=== PATIENT | female | born 1985 | race Caucasian/White ===

== ENCOUNTER 2018-08-26 16:58 | Emergency (ER) | payer MEDICAID ==
[~2018-08-26] VITALS: Ht 170.2 cm; Wt 52.2 kg
[2018-08-26] MEDS ORDERED: NKM (17:00)
[2018-08-26] MEDS ORDERED: QUETIAPINE FUMA25 MG ORAL (17:02)
[2018-08-26 17:05] VITALS: BP 101/70
--- NOTE | 2018-08-26 17:05 | NUR ---
ED Nurse Note: BROUGHT IN BY [facility] DUE TO METH OD. PT STATES THAT SHE SMOKED A "DIMESACK' THIS MORNING WITH SEROQUEL. PT IS CRYING IN GURNEY. A/OX1 AT THIS TIME BUT ANSWERS SOME QUESTIONS BUT DOES NOT RESPOND TO ALL THE QUESTIONS. NO S/S OF DISTRESS.
--- NOTE | 2018-08-26 17:23 | NUR ---
ATTEMPTED EKG. PT AGITATED AND UNABLE TO SIT STILL. ERMD NOTIFIED.
[2018-08-26 18:03] LABS: BASOPHILS % (AUTO) 0.5 % (0.0-2.0); EOSINOPHILS % (AUTO) 0.7 % (0.0-3.0); HEMATOCRIT 37.8 % (37.0-47.0); HEMOGLOBIN 12.6 G/DL (12.0-16.0); LYMPHOCYTES % (AUTO) 14.1 % (20.0-45.0); MEAN CORPUSCULAR VOLUME 81 FL (80-99); MONOCYTES % (AUTO) 6.4 % (1.0-10.0); NEUTROPHILS % (AUTO) 78.3 % (45.0-75.0); PLATELET COUNT 259 K/UL (150-450); RED BLOOD COUNT 4.66 M/UL (4.20-5.40); RED CELL DISTRIBUTION WIDTH 12.4 % (11.6-14.8); WHITE BLOOD COUNT 17.2 K/UL (4.8-10.8)
[2018-08-26 18:05] LABS: APPEARANCE,URINE CLEAR; BILIRUBIN, URINE NEGATIVE (NEGATIVE); COLOR,URINE PALE YELLOW; GLUCOSE, URINE (UA) NEGATIVE (NEGATIVE); KETONES,URINE NEGATIVE (NEGATIVE); LEUKOCYTE ESTERASE ,URINE NEGATIVE (NEGATIVE); NITRITE,URINE NEGATIVE (NEGATIVE); PH,URINE 8 (4.5-8.0); PROTEIN,URINE NEGATIVE (NEGATIVE); UROBILINOGEN,URINE NORMAL MG/DL (0.0-1.0)
[2018-08-26 18:13] LABS: ANION GAP 9 mmol/L (5-15); BLOOD UREA NITROGEN 7 mg/dL (7-18); CALCIUM 9.3 MG/DL (8.5-10.1); CARBON DIOXIDE 27 MMOL/L (21-32); CHLORIDE 98 MMOL/L (98-107); POTASSIUM 3.3 MMOL/L (3.5-5.1); SODIUM 134 MMOL/L (136-145)
[2018-08-26 18:25] LABS: ALANINE AMINOTRANSFERASE 33 U/L (12-78); ALBUMIN 3.7 G/DL (3.4-5.0); ALBUMIN/GLOBULIN RATIO 1.1 (1.0-2.7); ALKALINE PHOSPHATASE 105 U/L (46-116); ASPARTATE AMINO TRANSFERASE 27 U/L (15-37); BILIRUBIN,TOTAL 1.1 MG/DL (0.2-1.0)
[2018-08-26 18:28] LABS: BILIRUBIN,DIRECT 0.2 MG/DL (0.0-0.3)
[2018-08-26 18:38] VITALS: BP 122/87
--- NOTE | 2018-08-26 18:39 | NUR ---
ED Nurse Note: PT IS NOW A/OX4. PT REPORTS THAT SHE TAKES LOTS OF DRUGS. DENIES SOB NOR CP.
--- NOTE | 2018-08-26 19:01 | NUR ---
HAND-OFF: Report given to SILVIANO Sanchez. No signs of distress.
--- NOTE | 2018-08-26 19:02 | NUR ---
ED Nurse Note: Patient is currently A&Ox4, but paranoid. vital signs are stable.
--- NOTE | 2018-08-26 19:20 | NUR ---
ED Nurse Note: Patietn exhibting sgns of seizure, patient convulsing, ERMD informed patient rendered anti-anxiety medication.
[2018-08-26] MEDS ORDERED: LORazepam 1mg tab ORAL ONE ×2 (19:30→20:15)
--- NOTE | 2018-08-26 19:51 | Emergency Room Report ---
History of Present Illness General Chief Complaint: Substance Abuse Source: Patient (Delfina Jones DO) Present Illness HPI This patient is brought in by EMS from the streets. She did multiple rounds of methamphetamine this morning and feels like maybe she is overdosed. She is acting bizarrely. She has no specific complaints. (Delfina Jones DO) Allergies: Coded Allergies: PENICILLINS (Verified Allergy, Unknown, 08/26/18) Patient History Past Medical History: unable to obtain Social History: Reports: smoking, drug use; Denies: alcohol use Last Menstrual Period: n/a Now: No Reviewed Nursing Documentation: PMH: Agreed; PSxH: Agreed (Delfina Jones DO) Nursing Documentation-PMH Past Medical History: No History, Except For History Of Psychiatric Problem: Yes - schizophrenia, bipolar disorder (Delfina Jones DO) Review of Systems All Other Systems: negative except mentioned in HPI (Delfina Jones DO) Physical Exam Vital Signs Date Time Temp Pulse Resp B/P (MAP) Pulse Ox O2 Delivery O2 Flow Rate FiO2 08/26/18 16:55 97.9 120 18 112/83 98 Room Air Sp02 EP Interpretation: reviewed, normal General Appearance: no apparent distress, alert, GCS 15, non-toxic Head: normocephalic, atraumatic ENT: hearing grossly normal, normal pharynx, no angioedema, normal voice Neck: full range of motion, supple/symm/no masses Respiratory: chest non-tender, lungs clear, normal breath sounds, no respiratory distress, no retraction, no accessory muscle use, speaking full sentences Cardiovascular #1: no edema, tachycardia Gastrointestinal: normal bowel sounds, non tender, soft, non-distended, no guarding, no rebound Rectal: deferred Musculoskeletal: back normal, normal range of motion, non-tender Neurologic: alert, responsive, motor strength/tone normal, speech normal, grossly normal Psychiatric: no suicidal/homicidal ideation, anxious - Agitated, bizarre behavior Skin: normal color, no rash, warm/dry, well hydrated (Delfina Jones DO) Medical Decision Making Diagnostic Impression: Primary Impression: Methamphetamine intoxication ER Course This patient presents with acute methamphetamine intoxication. The patient's laboratory workup was noncontributory other than positive amphetamines on urine drug screen. The patient has a leukocytosis which is likely an acute phase reactant secondary to methamphetamine abuse. There is no evidence of trauma or injury on physical examination of this patient. The patient was allowed to sober up in the emergency department and was able to ambulate and articulate desire to go home. The patient was clinically sober at the time of discharge. No acute emergency medical condition is identified. The patient was educated on the dangers of illicit drug use and amphetamine abuse. The patient was given a list of the local rehabilitation clinics. Laboratory Tests Test 08/26/18 17:30 08/26/18 17:50 Urine Color Pale yellow Urine Appearance Clear Urine pH 8 (4.5-8.0) Urine Specific [place] 1.010 (1.005-1.035) Urine Protein Negative (NEGATIVE) Urine Glucose (UA) Negative (NEGATIVE) Urine Ketones Negative (NEGATIVE) Urine Blood Negative (NEGATIVE) Urine Nitrite Negative (NEGATIVE) Urine Bilirubin Negative (NEGATIVE) Urine Urobilinogen Normal MG/DL (0.0-1.0) Urine Leukocyte Esterase Negative (NEGATIVE) Urine HCG, Qualitative Negative (NEGATIVE) Urine Opiates Screen Negative (NEGATIVE) Urine Barbiturates Screen Negative (NEGATIVE) Phencyclidine (PCP) Screen Negative (NEGATIVE) Urine Amphetamines Screen Positive (NEGATIVE) H Urine Benzodiazepines Screen Negative (NEGATIVE) Urine Cocaine Screen Negative (NEGATIVE) Urine Marijuana (THC) Screen Negative (NEGATIVE) White Blood Count 17.2 K/UL (4.8-10.8) H Red Blood Count 4.66 M/UL (4.20-5.40) Hemoglobin 12.6 G/DL (12.0-16.0) Hematocrit 37.8 % (37.0-47.0) Mean Corpuscular Volume 81 FL (80-99) Mean Corpuscular Hemoglobin 27.0 PG (27.0-31.0) Mean Corpuscular Hemoglobin Concent 33.2 G/DL (32.0-36.0) Red Cell Distribution Width 12.4 % (11.6-14.8) Platelet Count 259 K/UL (150-450) Mean Platelet Volume 6.5 FL (6.5-10.1) Neutrophils (%) (Auto) 78.3 % (45.0-75.0) H Lymphocytes (%) (Auto) 14.1 % (20.0-45.0) L Monocytes (%) (Auto) 6.4 % (1.0-10.0) Eosinophils (%) (Auto) 0.7 % (0.0-3.0) Basophils (%) (Auto) 0.5 % (0.0-2.0) Sodium Level 134 MMOL/L (136-145) L Potassium Level 3.3 MMOL/L (3.5-5.1) L Chloride Level 98 MMOL/L (98-107) Carbon Dioxide Level 27 MMOL/L (21-32) Anion Gap 9 mmol/L (5-15) Blood Urea Nitrogen 7 mg/dL (7-18) Creatinine 1.0 MG/DL (0.55-1.30) Estimate Glomerular Filtration Rate > 60 mL/min (>60) Glucose Level 92 MG/DL (74-106) Calcium Level 9.3 MG/DL (8.5-10.1) Total Bilirubin 1.1 MG/DL (0.2-1.0) H Direct Bilirubin 0.2 MG/DL (0.0-0.3) Aspartate Amino Transferase (AST) 27 U/L (15-37) Alanine Aminotransferase (ALT) 33 U/L (12-78) Alkaline Phosphatase 105 U/L (46-116) Total Protein 7.2 G/DL (6.4-8.2) Albumin 3.7 G/DL (3.4-5.0) Globulin 3.5 g/dL Albumin/Globulin Ratio 1.1 (1.0-2.7) Serum Alcohol < 3 mg/dL (Delfina Jones DO) ER Course She presents with acute psychosis from methamphetamine abuse. She slept through the night. She is awake now and feeling better. Denies any suicidal thoughts or homicidal thought. No hallucination. There is no criteria for 5150. She does not want to go to a halfway. This patient is a chronic risk of self injury due to poor impulse control, limited coping skills, and judgment intermittently impaired by intoxication. I believe that the available clinical evidence to suggest that these characteristics derived primarily from personality disorder and are likely very stable over time. Hospitalization would likely attenuate risk of self-harm only during senior living period, without lasting risk reduction. Serious self-harm , while possible, would likely be inadvertent, and because of impulsivity, and foreseeable. For these reasons, I do not believe hospitalization would provide meaningful reduction in risk of self-harm. (Benoit Sanchez MD) EKG Diagnostic Results Rate: normal Rhythm: NSR ST Segments: no acute changes (Delfina Jones DO) Rhythm Strip Diag. Results EP Interpretation: yes Rate: 100's Rhythm: other - S.tachycardai (Delfina Jones Sd BIRD) Last Vital Signs Date Time Temp Pulse Resp B/P (MAP) Pulse Ox O2 Delivery O2 Flow Rate FiO2 08/26/18 18:38 97.9 94 13 122/87 100 Room Air (Delfina Jones Sd BIRD) Status: improved (Benoit Sanchez MD) Disposition: HOME, SELF-CARE Condition: Stable Referrals: NOT CHOSEN IPA/,REFERRING (PCP) Patient Instructions: Stimulant Use Disorder-Methamphetamines Additional Instructions: Stop using drugs. Follow-up with rehabilitation within a week. Return if worse. Delfina Jones DO Aug 26, 2018 19:51 Benoit Sanchez MD Aug 27, 2018 02:37
--- NOTE | 2018-08-26 20:22 | NUR ---
ED Nurse Note: Patient is currently very anxious, and is moaning aloud, ERMD informed and patient rendered medication PO.
--- NOTE | 2018-08-26 23:00 | NUR ---
ED Nurse Note: Patient currently sleeping soundly, no s/s of acute distress. vital sings stable.
[2018-08-26 23:01] VITALS: BP 110/71
--- NOTE | 2018-08-27 00:05 | NUR ---
ED Nurse Note: Patient resting comfortably, vital signs stable.
[2018-08-27 00:44] VITALS: BP 107/70
--- NOTE | 2018-08-27 01:20 | NUR ---
ED Nurse Note: Patient resting comfortably, will continue to monitor.
[2018-08-27 02:26] VITALS: BP 111/76
--- NOTE | 2018-08-27 02:26 | NUR ---
ED Nurse Note: Patient still resting comfortably. No s/s of acute distress.
--- NOTE | 2018-08-27 05:42 | NUR ---
ED Nurse Note: Patient currently sleeping off and on. Patient requested more water PO, request accomodated. vital signs stable.
[2018-08-27 05:43] VITALS: BP 112/78
--- NOTE | 2018-08-27 06:16 | NUR ---
ED Nurse Note: Patient cleared for discharge by HAYDE, called [facility], [place] per patient request to speak to Real who patient says would make arrangements to have her picked up. Spoke to Khadra who stated she will consult Real and then give us a call back.
--- NOTE | 2018-08-27 06:46 | NUR ---
ED Nurse Note: [facility] is unable to accomodate patient. Offered [facility] [facility] and patient declined. Patient discharged with steady gait, and all belongings.
[2018-08-27 06:57] VITALS: BP 112/78
--- NOTE | 2018-08-29 15:39 | Cardiology Report ---
APPROVED REPORT EKG Measurement Heart [id number] Normal sinus rhythm Nonspecific T wave abnormality Prolonged QT Abnormal ECG
== END 2018-08-27 06:58 | disposition home or self-care (01) ==
LOC: EDBD 16:58 → EMR 17:32
DX: F15.129 Other stimulant abuse with intoxication, unspecified (principal); Z88.0 Allergy status to penicillin; F31.9 Bipolar disorder, unspecified; F20.9 Schizophrenia, unspecified; F17.200 Nicotine dependence, unspecified, uncomplicated
CPT/HCPCS: 36415; 80053; 80307; 80329; 81003; 81025; 82248; 85025; 93005; 99283